=== PATIENT | male | born 1965 | race Caucasian/White ===

== ENCOUNTER 2017-07-12 13:22 | Emergency (ER) | payer OTHER ==
[~2017-07-12] VITALS: Ht 167.6 cm; Wt 68.2 kg
[2017-07-12 13:28] VITALS: BP 146/90; PULSE 80; RESP 16; O2SAT 100
--- NOTE | 2017-07-12 13:40 | ED.REPORT ---
HPI-Allergic Reaction Date of Service Jul 12, 2017 ED Provider: The pt is a 52 y/o male with hx of allergic reactions to bee stings who presents to the ED 45min. ago. breathing labored but not bad. Allergy prednezone and benedryl and got better. The pt voice does not sound normal. otherwise no perfectly healthy. no smoke, no drug, Swelling of uvula. Nursing Notes Stated Complaint: HORNET STING IN THROAT Chief Complaint: Allergic Reaction Nursing Notes Reviewed: Yes ([employer], meds not reconciled) Allergies: Coded Allergies: bee venom protein (honey bee) (Verified Allergy, Severe, Anaphylaxis, 07/12) No Known Drug Allergies (Verified Allergy, Unknown, 07/12/17) Scheduled Prednisone (PredniSONE) 20 Mg Tablet 60 MG PO DAILY Scheduled PRN Epinephrine (Epipen 2-Luis Enrique) 0.3 Mg/0.3 Ml Auto.injct 0.3 MG IJ DIRECTED PRN PRN For Anaphyllaxis General Time Seen by MD: 13:39 Chief Complaint Allergic reaction, Other Physical Exam Initial Vital Signs Vital Signs (First) Date Time Temp Pulse Resp B/P Pulse Ox O2 Delivery O2 Flow Rate FiO2 07/12/17 13:28 37.2 80 16 146/90 100 Room Air Initial VS: Reviewed, Vital signs normal Re-Eval/Medical Decision Med Decision/Clinical Course This is a 52-year-old with a history of bee sting allergies reports he is biking when he swallowed a hornet that then stung him in the mouth, so he became concerned. Some soreness, and will but a discomfort swallowing, but denies chinedu respiratory distress, denies nausea vomiting, or urticaria-is required steroids and Benadryl the past for hymenoptera allergies, but not required epinephrine. On exam he is in no visible distress, has normal vitals, his voice sounds normal to me but he reports it feels slightly different-exam he does have significant uvula swelling, but no other angioedema the lips tongue, or airway. He demonstrates no clinically evident airway obstruction. There is no stridor, there is no bronchospasm. Given the location in his history and IV was immediately placed, received Solu- Medrol, Benadryl, Pepcid and was observed-but did well with no progression. He is comfortable being discharged home. At this point rather than a systemic allergic reaction appears to have simple localized edema to the source and location of the sting, which unfortunately is the uvula. But he is holding it very well. He is being discharged and continue course of steroids, when necessary Benadryl, and I written for epinephrine pens given the hymenoptera allergy. Patient is discharged in improved condition Source of Hx: Old records Differential Diagnosis: Positive: Allergic reaction, Angioedema, Insect bite, Negative: Angioneurotic edema, Bronchospasm, Contact dermatitis, Erythema multiforme, Gastroenteritis, Urticaria Discharge & Departure Primary Impression: Allergic reaction to bee sting Joseph Funes MD Jul 12, 2017 13:40 Raza Greer Jul 12, 2017 13:46
[2017-07-12] MEDS ORDERED: MethylprednisoLONE Sodium Succinate 62.5 mg/mL 2 mL Inj IVPUSH ONE (13:45)
[2017-07-12] MEDS ORDERED: Famotidine Inj 20 MG in IV Premix 1 EACH IV ONE (13:45)
[2017-07-12 13:51] VITALS: BP 137/100; PULSE 79; RESP 14; O2SAT 99
[2017-07-12 14:34] VITALS: BP 137/72; PULSE 97; RESP 14; O2SAT 99
[2017-07-12] MEDS ORDERED: EPIN0.3P2 IJ (14:56)
[2017-07-12] MEDS ORDERED: PRE20 PO (14:56)
[2017-07-12 15:39] VITALS: BP 122/85; PULSE 86; RESP 14; O2SAT 98
== END 2017-07-12 15:40 | disposition home or self-care (01) ==
LOC: SED 13:22
DX: T63.451A Toxic effect of venom of hornets, accidental (unintentional), initial encounter (principal); W57.XXXA Bitten or stung by nonvenomous insect and other nonvenomous arthropods, initial encounter; Y93.55 Activity, bike riding; Y99.8 Other external cause status; Y92.410 Unspecified street and highway as the place of occurrence of the external cause
CPT/HCPCS: 96365; 96375; 99284; J1200; J2930; J3490